=== PATIENT | male | born 1970 | race Caucasian/White ===

== ENCOUNTER 2017-09-23 14:02 | Day surgery (SDC) | payer OTHER ==
[2017-09-20 19:15] VITALS: BMI 33.9
[2017-09-23 14:36] VITALS: TEMP 98.5
[2017-09-23] MEDS ORDERED: PROPOFOL 20 ML ONE (16:54)
[2017-09-23] MEDS ORDERED: fentaNYL CITRATE 250 MCG/5 ML VIAL ONE (16:54)
[2017-09-23] MEDS ORDERED: MIDAZOLAM HCL 2 MG/2 ML SINGLE DOSE VIAL ONE (16:54)
--- NOTE | 2017-09-23 17:24 | OP ---
Operative Note - Note: Operative Date: 09/23/17 Pre-Operative Diagnosis: Right kidney stone Operation: Right ESWL Findings: 7 mm mid pole Right renal stone Post-Operative Diagnosis: Same as Pre-op Anesthesia: Fractional
[2017-09-23 19:21] VITALS: BP 119/88; PULSE 76
--- NOTE | 2017-09-23 23:45 | OP ---
DATE OF OPERATION: 09/23/2017 PREOPERATIVE DIAGNOSIS: Right renal stone. POSTOPERATIVE DIAGNOSIS: Right renal stone. PROCEDURE: Right extracorporeal shock wave lithotripsy. ATTENDING: Tracey Kaplan M.D. ANESTHESIA: Fractional. OPERATION: Patient was brought in the operating room, placed in a supine position on the operating room table. Ultrasonography and fluoroscopy were performed. A 7-mm right mid pole stone was identified. At this point, anesthesia and preoperative antibiotics were administered. With this accomplished, the patient underwent a right extracorporeal shock wave lithotripsy. 3000 impulses at 17 joules of power were administered to the stone with excellent fragmentation under real time fluoroscopy and ultrasonography. The patient tolerated DISPOSITION: Disposition of the patient to the recovery room. TRACEY BRIDGES M.D. [id number]
== END 2017-09-23 18:20 | disposition home or self-care (01) ==
LOC: JASU-SURG 14:02
PROVIDERS: ATTEND Urology
PROC: 0TF3XZZ Fragmentation in Right Kidney Pelvis, External Approach (ICD-10-PCS; principal; 2017-09-23 15:30)
DX: N20.0 Calculus of kidney (principal)

== ENCOUNTER 2018-04-07 10:25 | Day surgery (SDC) | payer OTHER ==
[2018-04-04 08:45] VITALS: BMI 33.9
[~2018-04-07 10:25] MED LIST: oxyCODONE HCL 5 MG TABLET PO PRN
[2018-04-07] MEDS ORDERED: MIDAZOLAM HCL 2 MG/2 ML SINGLE DOSE VIAL ONE (12:13)
--- NOTE | 2018-04-07 12:43 | OP ---
Operative Note - Note: Operative Date: 04/07/18 Operation: Right renal stone Findings: 7 mm mid pole Right renal stone Post-Operative Diagnosis: Same as Pre-op Anesthesia: Fractional Estimated Blood Loss (mls): 0 Operative Report Dictated: Yes
[2018-04-07 15:06] VITALS: TEMP 97.4
[2018-04-07 15:10] VITALS: BP 143/77; PULSE 82
--- NOTE | 2018-04-08 10:06 | OP ---
DATE OF OPERATION: 04/07/2018 PREOPERATIVE DIAGNOSIS: Right renal stone. POSTOPERATIVE DIAGNOSIS: Right renal stone. PROCEDURE: Right extracorporeal shock wave lithotripsy. ATTENDING: Tracey Bridges MD ANESTHESIA: Fractional. DESCRIPTION OF PROCEDURE: The operation was as follows. The patient was brought in the operating room and placed in supine position on the operating room table. Ultrasonography and fluoroscopy was performed. A right-sided, 7-mm midpole stone was identified. Anesthesia was administered to the patient at this point as well as antibiotics. The patient then underwent shock-wave lithotripsy. Excellent fragmentation was noted under real-time ultrasonography and fluoroscopy. There were no complications. DISPOSITION: The patient went to recovery room. TRACEY BRIDGES M.D. [id number]
== END 2018-04-07 14:45 | disposition home or self-care (01) ==
LOC: JASU-SURG 10:25
PROVIDERS: ATTEND Urology
PROC: 0TF3XZZ Fragmentation in Right Kidney Pelvis, External Approach (ICD-10-PCS; principal; 2018-04-07 12:30)
DX: N20.0 Calculus of kidney (principal)

== ENCOUNTER 2018-12-19 08:27 | Inpatient (IN) | payer OTHER ==
[2018-12-18 12:57] VITALS: BMI 35.5
[2018-12-19] MEDS ORDERED: DEXAMETHASONE SOD PHOSPHATE 4 MG/1 ML VIAL ONE ×3 (09:03→10:16)
[2018-12-19] MEDS ORDERED: MIDAZOLAM HCL 2 MG/2 ML SINGLE DOSE VIAL ONE ×3 (09:03→10:13)
[2018-12-19] MEDS ORDERED: ERTAPENEM SODIUM 1 GM in SODIUM CHLORIDE 50 ML IVPB ONE (09:03)
[2018-12-19] MEDS ORDERED: ROCURONIUM BROMIDE 50 MG/5 ML SYRINGE ONE ×2 (09:03→11:20)
[2018-12-19] MEDS ORDERED: fentaNYL CITRATE 250 MCG/5 ML VIAL ONE (09:03)
[2018-12-19] MEDS ORDERED: ALVIMOPAN 12 MG CAP PO ONE ×3 (09:05→09:17)
[2018-12-19] MEDS ORDERED: ERTAPENEM SODIUM 1 GM VIAL ONE (09:14)
[2018-12-19] MEDS ORDERED: BUPIVACAINE HCL/PF 0.5% (5 MG/ML) 30 ML VIAL IJ ONE (10:14)
[2018-12-19] MEDS ORDERED: DEXAMETHASONE SOD PHOSPHATE/PF 10 MG/ML SDV ONE (10:16)
--- NOTE | 2018-12-19 10:23 | HP ---
Admitting History and Physical - Primary Care Physician PCP: Vivian Skelton - Admission Chief Complaint: appendiceal mucocoele History of Present Illness: 48 y.o. male presents with large appendiceal mucocele incidentally identified on CT scan for nephrolithiasis work-up. Patient denies abdominal pain, n & v, constipation, or weight loss. Colonoscopy was reported as unremarkable. History Source: Patient Limitations to Obtaining History: No Limitations - Past Surgical History Additional Past Surgical History: lithotrypsy - Smoking History Smoking history: Never smoked - Alcohol/Substance Use Hx Alcohol Use: Yes (RARELY) Home Medications - Allergies Allergies/Adverse Reactions: Allergies Allergy/AdvReac Type Severity Reaction Status Date / Time No Known Drug Allergies Allergy Verified 12/18/18 12:57 - Home Medications Home Medications: Ambulatory Orders Dublin-3/Dha/Epa/Fish Oil [[place] 3 500 Softgel] 1 each PO DAILY 12/19/18 Review of Systems - Review of Systems Constitutional: reports: No Symptoms Eyes: reports: No Symptoms HENT: reports: No Symptoms Neck: reports: No Symptoms Cardiovascular: reports: No Symptoms Respiratory: reports: No Symptoms Gastrointestinal: reports: No Symptoms Breasts: reports: No Symptoms Reported Physical Examination Vital Signs: Vital Signs Temperature 97.4 F L 12/19/18 09:21 Pulse Rate 73 12/19/18 09:21 Respiratory Rate 20 12/19/18 09:21 Blood Pressure 128/87 12/19/18 09:21 O2 Sat by Pulse Oximetry (%) 99 12/19/18 09:20 Constitutional: Yes: Well Nourished Eyes: Yes: Conjunctiva Clear HENT: Yes: Normocephalic Neck: Yes: Supple Cardiovascular: Yes: Regular Rate and Rhythm Respiratory: Yes: CTA Bilaterally Gastrointestinal: Yes: Soft, Palpable Mass (none), Tenderness, Rebound (none) Imaging - Results Cat Scan: Report Reviewed, Image Reviewed Problem List - Problems (1) Mucocele of appendix Assessment/Plan: r/o appendiceal cystadenoma vs. cystadenocarcinoma For open right hemicolectomy Code(s): K38.8 - OTHER SPECIFIED DISEASES OF APPENDIX
[2018-12-19] MEDS ORDERED: CEFOXITIN SODIUM 2 GM IVPB ONE (10:50)
[2018-12-19] MEDS ORDERED: cefOXitin SODIUM 2 GM VIAL (RESTRICTED TO ID) IVPB ONE (10:55)
[2018-12-19] MEDS ORDERED: HYDROmorphone HCl 2 MG/ML VIAL ONE (11:57)
[2018-12-19] MEDS ORDERED: ONDANSETRON 4 MG/2 ML VIAL IVPUSH PRN (13:36)
[2018-12-19] MEDS ORDERED: LACTATED RINGERS SOLUTION 1,000 ML IV SCH (13:45)
--- NOTE | 2018-12-19 13:53 | OP ---
<Sukh Corrales - Last Filed: 12/19/18 13:51> Operative Note - Note: Operative Date: 12/19/18 Pre-Operative Diagnosis: appendix mucocele Operation: Open ileocolic resection with hepatic flexure takedown Post-Operative Diagnosis: Same as Pre-op Surgeon: James Elizabeth Stitchdown Toe Former: Sukh Corrales Anesthesiologist/MOTORIZED SQUAD SERGEANT: Donna Gardner Anesthesia: General Specimens Removed: ileocolic resection Estimated Blood Loss (mls): 30 Drains, Volume Out (mls): 400 Fluid Volume Replaced (mls): 1,300 Operative Report Dictated: Yes <James Elizabeth - Last Filed: 12/19/18 14:04> Operative Note - Note: Operation: Right hemicolectomy Findings: large (13 cm) appendiceal mucocele with loss of delineation between appendiceal base and cecum Intact non-leaking mucocele
--- NOTE | 2018-12-19 13:54 | SURG ---
Surgery Senior C Developer Note Senior C Developer: Sukh Corrales PA-C Date of Service: 12/19/18 Diagnosis: Appendix mucocele Procedure: open ileocolic resection with hepatic flexure takedown I was present for the entirety of the operative procedure. For further detail, please refer to operative report. Visit type - Case Type Case Type: Scheduled - New patient This patient is new to me today: Yes Date on this admission: 12/19/18
[2018-12-19] MEDS ORDERED: ACETAMINOPHEN 1000 MG/100 ML VIAL (NON FORMULARY) IVPB PRN (14:03)
[2018-12-19] MEDS ORDERED: HYDROmorphone *PCA* 10MG/50ML DISP.SYRIN ONE (14:06)
[2018-12-19] MEDS ORDERED: ACETAMINOPHEN INJECTION 100 ML IVPB ONE (14:06)
[2018-12-19] MEDS: HYDROmorphone *PCA* 10MG/50ML DISP.SYRIN PCA SCH ×2 (14:20→19:55)
--- NOTE | 2018-12-19 16:21 | CONSULT ---
Consult Consult Specialty:: internal medicine - History of Present Illness Chief Complaint: s/p surgery History of Present Illness: 48 yr old male h/o kidey stone s/p ESWL 6 months ago and now came in for mucocele in appedix - History Source History Provided By: Medical Record - Alcohol/Substance Use Hx Alcohol Use: Yes (RARELY) - Smoking History Smoking history: Never smoked Home Medications - Allergies Allergies/Adverse Reactions: Allergies Allergy/AdvReac Type Severity Reaction Status Date / Time No Known Drug Allergies Allergy Verified 12/18/18 12:57 - Home Medications Home Medications: Ambulatory Orders Parnell-3/Dha/Epa/Fish Oil [[place] 3 500 Softgel] 1 each PO DAILY 12/19/18 Physical Exam Vital Signs: Vital Signs Temperature 97.4 F L 12/19/18 09:21 Pulse Rate 98 H 12/19/18 15:25 Respiratory Rate 16 12/19/18 15:25 Blood Pressure 138/83 12/19/18 15:25 O2 Sat by Pulse Oximetry (%) 97 12/19/18 15:25 Problem List - Problems (1) Mucocele of appendix Assessment/Plan: Open ileocolic resection with hepatic flexure takedown dilaudid petrographer pump ivf clear liquid in AM dvt pppx labs in AM Code(s): K38.8 - OTHER SPECIFIED DISEASES OF APPENDIX
[2018-12-19] MEDS: LACTATED RINGERS SOLUTION 1,000 ML/1,000 ML INFUS.BAG IV SCH (19:56)
--- NOTE | 2018-12-19 19:56 | OP ---
DATE OF OPERATION: 12/19/2018 PROCEDURE: Open right hemicolectomy. PREOPERATIVE DIAGNOSIS: Appendiceal mucocele. POSTOPERATIVE DIAGNOSIS: Appendiceal mucocele. SURGEON: James Elizabeth MD PORTFOLIO ASSISTANT: Sukh Corrales RPA ANESTHESIA: General endotracheal. FINDINGS AND PROCEDURE: This is a 48-year-old male who presents with an incidental CT scan finding of a large (13-cm) appendiceal mucocele while being worked up for nephrolithiasis. Patient denies having abdominal pain, nausea, vomiting, constipation, or weight loss. On physical exam, patient has a soft abdomen with no palpable mass. The patient was advised elective, semi-urgent colectomy after colonoscopy. The colonoscopy revealed no abnormality of the colon. Consent was obtained after discussing the risks, benefits, and alternatives of the procedure. Patient was brought to the operating room and placed in supine position. General endotracheal anesthesia was administered. The abdomen was prepped and draped in the usual sterile fashion. A Sanford catheter was also inserted. Using scalpel blade No. 10, a 15-cm midline incision was made with dissection carried down to the subcutaneous tissue. Further dissection using Bovie cautery was done until the fascia was encountered. The fascia was incised using Bovie cautery to enter the peritoneal cavity. The large appendiceal mucocele was then encountered, and careful dissection with right-angle forceps and Bovie cautery was done to take down the adhesions to the visceral peritoneum and the right pericolic gutter. After the appendiceal mucocele was freed of its attachment, the ascending colon was then dissected by incising the white line of Toldt toward the hepatic flexure. The proximal transverse colon was identified and the omental attachments were taken down using the LigaSure [place] vessel-sealing device. Further dissection of the mesocolon toward the jejunum was done using blunt dissection and sharp dissection with sponge sticks and Bovie cautery. The duodenum was visualized. The completion of the hepatic flexure takedown was done by sharply incising the attachments to the retroperitoneum. The transverse colon was then transected just to the right of the midline using a EFRAIN 60 stapling device. The small bowel was also transected about 7 cm proximal to the ileocecal valve with an Endo EFRAIN 60/3.5-mm stapling device. The mesocolon was then completely resected using the [place] LigaSure vessel sealing device. Specimen was then carefully extracted from the abdominal cavity and sent to the lab for pathologic examination. No leakage of the mucocele contents was noted. A [id number] anastomosis was then constructed by making an enterotomy through the tip of the staple line of the colon and the small bowel, and an Endo EFRAIN 60 stapling device was fired to create the common channel. The common enterotomy was then closed with a TA 60 stapling device. The anastomosis was then covered with omentum to protect the anastomosis. The omentum was tacked to the anastomotic area with 2 Vicryl 3-0 sutures. The peritoneal cavity was irrigated with sterile water until the return was clear. The wound was closed with continuous PDS loop No. 1 suture for the fascia and larry for the skin. The wound was then covered with sterile dressing. Patient was successfully extubated and transferred to the post-anesthesia care unit in satisfactory condition. Estimated blood loss was about 50 mL. Wound class clean, contaminated. The patient received 2 g of propoxyphene prior to the start of the procedure. Sarahi [id number] MTDD
[2018-12-20] MEDS ORDERED: PT OWN MED DRAWER 7, Y5N ONE (06:22)
[2018-12-20 07:56] LABS: BASO % 0.2 % (0-2.0); HEMATOCRIT 39.3 % (35.4-49); HEMOGLOBIN 12.9 GM/dL (11.7-16.9); LYMPH % 18.6 % (8-40); MCH 25.6 pg (25.7-33.7); MCHC 32.7 g/dl (32.0-35.9); MEAN CELL VOLUME 78.3 fl (80-96); MEAN PLT VOLUME 7.6 fl (7.5-11.1); MONO % 8.9 % (3.8-10.2); NEUT % 72.3 % (42.8-82.8); PLATELET COUNT 177 K/MM3 (134-434); RBC 5.02 M/mm3 (4.00-5.60); RDW 14.8 % (11.9-15.9); WHITE BLOOD COUNT 10.3 K/mm3 (4.0-10.0)
[2018-12-20 08:05] LABS: BLOOD UREA NITROGEN 17.3 mg/dL (7-18); CALCIUM 8.5 mg/dL (8.5-10.1); CREATININE 0.8 mg/dL (0.55-1.3)
--- NOTE | 2018-12-20 08:24 | PN ---
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
[2018-12-20] MEDS: ENOXAPARIN NA (PORCINE) 40 MG/0.4 ML DISP.SYRIN SQ SCH (09:18)
[2018-12-20] MEDS: HYDROmorphone *PCA* 10MG/50ML DISP.SYRIN PCA SCH (14:14)
--- NOTE | 2018-12-20 16:12 | PN ---
Progress Note, Physician Chief Complaint: Appendiceal Mucocele History of Present Illness: Previous notes and events reviewed awake and alert NAD complain of pain to surgical site denies BM or passing flatus - Current Medication List Current Medications: Active Medications Acetaminophen (Ofirmev Injection -) 1,000 mg IVPB Q6H PRN PRN Reason: PAIN Last Admin: 12/19/18 14:10 Dose: 1,000 mg Enoxaparin Sodium (Lovenox -) 40 mg SQ DAILY [facility] Last Admin: 12/20/18 09:18 Dose: 40 mg Fentanyl (Sublimaze Injection -) 50 mcg IVPUSH [id number] PRN PRN Reason: PAIN-PACU ORDER X 4 DOSES ONLY Hydromorphone HCl (Hydromorphone 10 Mg/50 Ml-Ns) 10 mg COLORS CUSTODIAN COLORS CUSTODIAN [facility]; Protocol Stop: 12/26/18 13:40 Last Admin: 12/20/18 14:14 Dose: Not Given Lactated Ringer's (Lactated Ringers Solution) 1,000 ml in 1,000 mls @ 75 mls/ hr IV ASDIR [facility] Last Admin: 12/19/18 19:56 Dose: Not Given Ondansetron HCl (Zofran Injection) 4 mg IVPUSH Q6H PRN PRN Reason: NAUSEA AND/OR VOMITING - Objective Vital Signs: Vital Signs Temperature 99.1 F 12/20/18 15:35 Pulse Rate 99 H 12/20/18 15:35 Respiratory Rate 18 12/20/18 15:35 Blood Pressure 132/85 12/20/18 15:35 O2 Sat by Pulse Oximetry (%) 96 12/20/18 09:00 Constitutional: Yes: No Distress, Calm Eyes: Yes: Conjunctiva Clear HENT: Yes: Atraumatic Cardiovascular: Yes: Regular Rate and Rhythm Respiratory: Yes: Regular, CTA Bilaterally Gastrointestinal: Yes: Soft, Distention, Hypoactive Bowel Sounds Musculoskeletal: Yes: Muscle Weakness Extremities: Yes: WNL Edema: No Neurological: Yes: Alert, Oriented Psychiatric: Yes: Alert, Oriented Labs: CBC, BMP 12/20/18 05:59 12/20/18 05:59 Problem List - Problems (1) Mucocele of appendix Assessment/Plan: -Surgery on board -COLORS CUSTODIAN pain control -Incentive Spirometer -IV hydration -clear liquid diet -POD #1 open ileocolic resection with hepatic flexure takedown Code(s): K38.8 - OTHER SPECIFIED DISEASES OF APPENDIX Assessment/Plan see problem list dvt ppx
--- NOTE | 2018-12-20 19:57 | PN ---
Progress Note, Physician Chief Complaint: S/P RIGHT HEMICOLECTOMY POD # 1 History of Present Illness: Post-op pain tolerable Able to be OOB Voiding freely Tolerating clear liquids - Current Medication List Current Medications: Active Medications Acetaminophen (Ofirmev Injection -) 1,000 mg IVPB Q6H PRN PRN Reason: PAIN Last Admin: 12/19/18 14:10 Dose: 1,000 mg Enoxaparin Sodium (Lovenox -) 40 mg SQ DAILY [facility] Last Admin: 12/20/18 09:18 Dose: 40 mg Fentanyl (Sublimaze Injection -) 50 mcg IVPUSH [id number] PRN PRN Reason: PAIN-PACU ORDER X 4 DOSES ONLY Hydromorphone HCl (Hydromorphone 10 Mg/50 Ml-Ns) 10 mg VISUAL AID EXPERT VISUAL AID EXPERT [facility]; Protocol Stop: 12/26/18 13:40 Last Admin: 12/20/18 14:14 Dose: Not Given Lactated Ringer's (Lactated Ringers Solution) 1,000 ml in 1,000 mls @ 75 mls/ hr IV ASDIR [facility] Last Admin: 12/19/18 19:56 Dose: Not Given Ondansetron HCl (Zofran Injection) 4 mg IVPUSH Q6H PRN PRN Reason: NAUSEA AND/OR VOMITING - Objective Vital Signs: Vital Signs Temperature 99.1 F 12/20/18 17:40 Pulse Rate 106 H 12/20/18 17:40 Respiratory Rate 20 12/20/18 17:40 Blood Pressure 137/82 12/20/18 17:40 O2 Sat by Pulse Oximetry (%) 96 12/20/18 09:00 Constitutional: Yes: Anxious Eyes: Yes: Conjunctiva Clear Neck: Yes: Supple Cardiovascular: Yes: Regular Rate and Rhythm Respiratory: Yes: CTA Bilaterally Gastrointestinal: Yes: Soft, Abdomen, Obese, Tenderness (over midline incision) Wound/Incision: Yes: Dressing Dry and Intact Labs: CBC, BMP 12/20/18 05:59 12/20/18 05:59 Problem List - Problems (1) Mucocele of appendix Assessment/Plan: Doing well Continue IVF Stay on clear liquids until patient passes flatus D/c VISUAL AID EXPERT in am OOB, IS, GI, & DVT prophylaxis Code(s): K38.8 - OTHER SPECIFIED DISEASES OF APPENDIX
[2018-12-21] MEDS: LACTATED RINGERS SOLUTION 1,000 ML/1,000 ML INFUS.BAG IV SCH ×4 (05:23→17:35)
[2018-12-21] MEDS: ENOXAPARIN NA (PORCINE) 40 MG/0.4 ML DISP.SYRIN SQ SCH (09:04)
[2018-12-21] MEDS: HYDROmorphone *PCA* 10MG/50ML DISP.SYRIN PCA SCH ×2 (14:12→17:29)
--- NOTE | 2018-12-21 15:23 | PN ---
Progress Note, Physician - Current Medication List Current Medications: Active Medications Acetaminophen (Ofirmev Injection -) 1,000 mg IVPB Q6H PRN PRN Reason: PAIN Last Admin: 12/19/18 14:10 Dose: 1,000 mg Enoxaparin Sodium (Lovenox -) 40 mg SQ DAILY [facility] Last Admin: 12/21/18 09:04 Dose: 40 mg Fentanyl (Sublimaze Injection -) 50 mcg IVPUSH [id number] PRN PRN Reason: PAIN-PACU ORDER X 4 DOSES ONLY Hydromorphone HCl (Hydromorphone 10 Mg/50 Ml-Ns) 10 mg LIEUTENANT/DEPUTY LIEUTENANT/DEPUTY [facility]; Protocol Stop: 12/26/18 13:40 Last Admin: 12/21/18 14:12 Dose: Not Given Lactated Ringer's (Lactated Ringers Solution) 1,000 ml in 1,000 mls @ 75 mls/ hr IV ASDIR [facility] Last Admin: 12/21/18 05:24 Dose: 75 mls/hr Ondansetron HCl (Zofran Injection) 4 mg IVPUSH Q6H PRN PRN Reason: NAUSEA AND/OR VOMITING - Objective Vital Signs: Vital Signs Temperature 98.6 F 12/21/18 10:31 Pulse Rate 96 H 12/21/18 10:31 Respiratory Rate 20 12/21/18 10:31 Blood Pressure 152/90 12/21/18 10:31 O2 Sat by Pulse Oximetry (%) 97 12/21/18 09:00 Labs: CBC, BMP 12/20/18 05:59 12/20/18 05:59 Problem List - Problems (1) Mucocele of appendix Code(s): K38.8 - OTHER SPECIFIED DISEASES OF APPENDIX
--- NOTE | 2018-12-21 16:14 | PN ---
Progress Note (short form) - Note Progress Note: ID CONSULT DICTATED POD# 2 OPEN R HEMICOLECTOMY LOW GRADE FEVER OBSERVE OFF ANTIBIOTICS OOB/ INCENTIVE SPIROMETRY
--- NOTE | 2018-12-21 18:13 | PN ---
Progress Note, Physician Chief Complaint: S/P RIGHT HEMICOLECTOMY POD # 2 History of Present Illness: passed flatus and had soft bm tolerating clear liquids - Current Medication List Current Medications: Active Medications Acetaminophen (Ofirmev Injection -) 1,000 mg IVPB Q6H PRN PRN Reason: PAIN Last Admin: 12/19/18 14:10 Dose: 1,000 mg Enoxaparin Sodium (Lovenox -) 40 mg SQ DAILY [facility] Last Admin: 12/21/18 09:04 Dose: 40 mg Fentanyl (Sublimaze Injection -) 50 mcg IVPUSH [id number] PRN PRN Reason: PAIN-PACU ORDER X 4 DOSES ONLY Hydromorphone HCl (Hydromorphone 10 Mg/50 Ml-Ns) 10 mg ASSOCIATE BUYER ASSOCIATE BUYER [facility]; Protocol Stop: 12/26/18 13:40 Last Admin: 12/21/18 17:29 Dose: 10 mg Lactated Ringer's (Lactated Ringers Solution) 1,000 ml in 1,000 mls @ 75 mls/ hr IV ASDIR [facility] Last Admin: 12/21/18 17:35 Dose: 75 mls/hr Ondansetron HCl (Zofran Injection) 4 mg IVPUSH Q6H PRN PRN Reason: NAUSEA AND/OR VOMITING - Objective Vital Signs: Vital Signs Temperature 98.0 F 12/21/18 17:14 Pulse Rate 105 H 12/21/18 17:14 Respiratory Rate 18 12/21/18 17:14 Blood Pressure 135/92 12/21/18 17:14 O2 Sat by Pulse Oximetry (%) 96 12/21/18 14:00 Constitutional: Yes: No Distress Gastrointestinal: Yes: Soft, Abdomen, Obese Wound/Incision: Yes: Clean/Dry, Well Approximated, Margo Intact, Open to air, Dressing Removed Labs: CBC, BMP 12/20/18 05:59 12/20/18 05:59 Problem List - Problems (1) Mucocele of appendix Assessment/Plan: Doing well has early return of bowel function advance to soft diet in am OOB, IS, DVT, & GI prophylaxis Code(s): K38.8 - OTHER SPECIFIED DISEASES OF APPENDIX
--- NOTE | 2018-12-21 18:21 | CONS ---
DATE OF CONSULTATION: DATE OF DICTATION: 12/21/2018 The patient is a 48-year-old male who is evaluated for postoperative fever. The patient was found to have an appendiceal mucocele during a routine evaluation for nephrolithiasis. He underwent an elective open right hemicolectomy on December 19, 2018. He is presently postoperative day number 2. His postoperative course has been complicated by fever, 100.2. At the present time, he is awake and alert. He has no focal complaint other than some incisional pain. He denies any shaking chills. No complaints of chest pain, shortness of breath, cough, or sputum production. No vomiting or diarrhea. No dysuria. No complaints of calf pain. PAST MEDICAL HISTORY: As above. No known allergies. LABORATORY DATA: White count 10.3, creatinine 0.8. PHYSICAL EXAMINATION: General: He is awake and alert. He is not acutely toxic appearing. Vital Signs: Temperature 99. T-max 100.2. Blood pressure 143/97. Pulse 94, regular. Respirations 18 per minute. Eyes: Sclerae anicteric. Heart Sounds: S1, S2. Lungs: Clear. Abdomen: Soft. Positive incisional tenderness. Surgical dressing in place. Extremities: Negative for edema. Negative Homans sign. IMPRESSION: 1. Postoperative day number 2, right hemicolectomy. 2. Low-grade postoperative fever. Would observe off antibiotic therapy. Encourage out of bed and incentive spirometry. Should patient develop recurrent fever, will obtain cultures off antibiotics. For now, observe. Thank you for the kind referral. BENIGNO DICKEY M.D. [id number]
[2018-12-21] MEDS ORDERED: ACETAMINOPHEN 325 MG TABLET (FP) PO PRN (18:25)
[2018-12-21] MEDS ORDERED: oxyCODONE HCL 5 MG TABLET PO PRN (18:25)
[2018-12-22 07:55] LABS: BASO % 0.3 % (0-2.0); EOS % 0.6 % (0-4.5); HEMATOCRIT 39.5 % (35.4-49); HEMOGLOBIN 13.1 GM/dL (11.7-16.9); LYMPH % 32.9 % (8-40); MCH 25.6 pg (25.7-33.7); MCHC 33.1 g/dl (32.0-35.9); MEAN CELL VOLUME 77.4 fl (80-96); MEAN PLT VOLUME 7.4 fl (7.5-11.1); MONO % 8.5 % (3.8-10.2); NEUT % 57.7 % (42.8-82.8); PLATELET COUNT 185 K/MM3 (134-434); RDW 14.4 % (11.9-15.9); WHITE BLOOD COUNT 7.2 K/mm3 (4.0-10.0)
[2018-12-22 08:11] LABS: BLOOD UREA NITROGEN 9.5 mg/dL (7-18); CALCIUM 8.7 mg/dL (8.5-10.1); CREATININE 0.8 mg/dL (0.55-1.3); POTASSIUM 3.9 mmol/L (3.5-5.1)
--- NOTE | 2018-12-22 08:20 | PN ---
Progress Note, Physician Chief Complaint: POST OP NO FEVER TODAY CLEAR DIET TOLERATED - Current Medication List Current Medications: Active Medications Acetaminophen (Tylenol -) 325 mg PO Q6H PRN PRN Reason: PAIN LEVEL 6-10 Enoxaparin Sodium (Lovenox -) 40 mg SQ DAILY [facility] Last Admin: 12/21/18 09:04 Dose: 40 mg Fentanyl (Sublimaze Injection -) 50 mcg IVPUSH [id number] PRN PRN Reason: PAIN-PACU ORDER X 4 DOSES ONLY Lactated Ringer's (Lactated Ringers Solution) 1,000 ml in 1,000 mls @ 75 mls/ hr IV ASDIR [facility] Last Admin: 12/21/18 17:35 Dose: 75 mls/hr Ondansetron HCl (Zofran Injection) 4 mg IVPUSH Q6H PRN PRN Reason: NAUSEA AND/OR VOMITING Oxycodone HCl (Roxicodone -) 5 mg PO Q6H PRN PRN Reason: PAIN LEVEL 6-10 - Objective Vital Signs: Vital Signs Temperature 98.5 F 12/22/18 06:13 Pulse Rate 84 12/22/18 06:13 Respiratory Rate 20 12/22/18 06:13 Blood Pressure 133/93 12/22/18 06:13 O2 Sat by Pulse Oximetry (%) 97 12/21/18 18:10 Constitutional: Yes: Mild Distress Cardiovascular: Yes: Regular Rate and Rhythm Respiratory: Yes: WNL Gastrointestinal: Yes: Other (BLEDING OOZING FROM STAPLE SITE) Musculoskeletal: Yes: WNL Extremities: Yes: WNL Edema: No Integumentary: Yes: WNL Wound/Incision: Yes: Clean/Dry Neurological: Yes: WNL ...Motor Strength: WNL Psychiatric: Yes: WNL Labs: CBC, BMP 12/22/18 06:15 Problem List - Problems (1) Mucocele of appendix Code(s): K38.8 - OTHER SPECIFIED DISEASES OF APPENDIX Assessment/Plan MONITOR LABS CULTURES FOR FEVER PENDING ID AND SX F/U ADVANCE DIET PER SURGERY OOB TO CHAIR DVT PROPHYLAXIS PAIN CONTROL
--- NOTE | 2018-12-22 09:11 | PN ---
Progress Note (short form) - Note Progress Note: 48yo M s/p Rt hemicolectomy POD # 3, pt seen and examined at bedside. Pt states that he is feeling well, tolerating PO and ambulating well. Pt denies fever, chills, n/v. Pt states that he had BM yesterday and is passing flatus. Pt is anxious to go home. Last Vital Signs Temp Pulse Resp BP Pulse Ox 98.5 F 84 20 133/93 97 12/22/18 06:13 12/22/18 06:13 12/22/18 06:13 12/22/18 06:13 12/21/18 18:10 PE: Gen: A&O X3 Resp: breathing comfortably Abd: soft, mild tenderness, non distended, incision clean, larry in place. Ext: no edema Problem List - Problems (1) Mucocele of appendix Assessment/Plan: Plan -pt appears to be doing well, will have diet adv to soft this morning, if pt tolerates diet and continues to do well, is cleared for discharge today from surgery standpoint. -pt should follow up with Dr. Elizabeth in 1 week as outpatient for follow up. Case discussed with Dr. Elizabeth who agrees with plan. Code(s): K38.8 - OTHER SPECIFIED DISEASES OF APPENDIX
[2018-12-22] MEDS: ENOXAPARIN NA (PORCINE) 40 MG/0.4 ML DISP.SYRIN SQ SCH (11:31)
[2018-12-23 06:37] LABS: HEMATOCRIT 39.1 % (35.4-49); HEMOGLOBIN 12.8 GM/dL (11.7-16.9); MCH 25.6 pg (25.7-33.7); MCHC 32.7 g/dl (32.0-35.9); MEAN CELL VOLUME 78.2 fl (80-96); MEAN PLT VOLUME 7.2 fl (7.5-11.1); PLATELET COUNT 199 K/MM3 (134-434); RDW 14.4 % (11.9-15.9); WHITE BLOOD COUNT 6.1 K/mm3 (4.0-10.0)
[2018-12-23 06:53] VITALS: BP 123/84; PULSE 76; TEMP 98.1
[2018-12-23 07:11] LABS: BLOOD UREA NITROGEN 12.6 mg/dL (7-18); CALCIUM 8.7 mg/dL (8.5-10.1); CREATININE 0.9 mg/dL (0.55-1.3); MAGNESIUM 2.2 mg/dL (1.8-2.4); POTASSIUM 3.8 mmol/L (3.5-5.1)
--- NOTE | 2018-12-23 07:44 | PN ---
Progress Note (short form) - Note Progress Note: 8yo M s/p Rt hemicolectomy POD # 4, pt seen and examined at bedside. Pt states that he is feeling well, tolerating PO and ambulating well. Pt is moving his bowels and his pain is controlled. He denies any CP, SOB, N/V, fever or chills. Vital Signs Temp 98.1 F 12/23/18 06:52 Pulse 76 12/23/18 06:52 Resp 20 12/23/18 06:52 BP 123/84 12/23/18 06:52 Pulse Ox 97 12/22/18 21:00 Intake & Output 12/22/18 12/22/18 12/23/18 11:59 23:59 11:59 Intake Total 500 1550 Output Total 600 400 Balance 500 950 -400 Intake: IV 500 LACTATED RINGERS SOLUTION 500 1,000 ml In 1,000 ml @ 75 mls/hr IV ASDIR [facility] Rx #:[id number] Oral 1550 Output: Urine 600 400 Void 600 400 Other: Voiding Method Urinal Toilet # Unmeasured Voids Sanford 2 Void 2 1 Bowel Movement No Yes # Bowel Movements 1 CBC, BMP 12/23/18 05:30 12/23/18 05:30 PE: Gen: A&O X3, NAD Resp:unlabored resp on RA Abd: obese soft, mild tenderness, non distended, incision c/d/i with surrounding tissue intact and no erythema or d/c, larry in place. Ext: no edema Problem List - Problems (1) Mucocele of appendix Assessment/Plan: POD #4 patient doing well. -Advance diet as tolerated -OOB -Daily IS -F/u with Dr. Elizabeth in 1 week as outpatient. -D/c planning for home Code(s): K38.8 - OTHER SPECIFIED DISEASES OF APPENDIX
--- NOTE | 2018-12-23 08:29 | DS ---
Physical Examination Vital Signs: Vital Signs Temperature 98.1 F 12/23/18 06:52 Pulse Rate 76 12/23/18 06:52 Respiratory Rate 20 12/23/18 06:52 Blood Pressure 123/84 12/23/18 06:52 O2 Sat by Pulse Oximetry (%) 97 12/22/18 21:00 Constitutional: Yes: No Distress Eyes: Yes: WNL Neck: Yes: WNL Cardiovascular: Yes: WNL Respiratory: Yes: WNL Gastrointestinal: Yes: Other (soft larry/sutures clean) Musculoskeletal: Yes: WNL Edema: No Peripheral Pulses WNL: Yes Integumentary: Yes: WNL Wound/Incision: Yes: Clean/Dry Neurological: Yes: WNL ...Motor Strength: WNL Psychiatric: Yes: WNL Labs: CBC, BMP 12/23/18 05:30 12/23/18 05:30 Discharge Summary Problems reviewed: Yes Reason For Visit: APPENDICEAL MUCOCELE Current Active Problems Mucocele of appendix (Acute) Procedures: Principal: appendectomy/mucocele Other Procedures: xrays/labs Hospital Course: admitted for mucocele/appendectomy Health Concerns: follow up needed Plan of Treatment: appendectomy completed tolerated well Goals: advance diet as tolerated Condition: Stable - Instructions Diet, Activity, Other Instructions: Dr Elizabeth Discharge Instructions Dear DASHA VILLANUEVA, Post Operative Instructions Physical activity Resume your normal everyday activity as tolerated no heavy lifting or exercise until seen by your surgeon. You may walk unlimited amounts of and climb stairs. You may resume driving the car when you feel safe and comfortable behind the wheel. Wound care If you have a bandage, leave it on, and keep dry for 48-72 hours. After that time discard the outer bandage. If there are tapes on the skin under the outer bandage, leave them in place. They will peel off in the next 7 to 10 days. Do Not Peel them off. You may shower the day after surgery. If there are tapes present on the skin, you may shower over them. Diet There are no dietary restrictions. Eat healthy, high-fiber foods. Drink 6 to 8 glasses of liquid each day. This will assist in keeping your bowels are regular. Pain management You may take Tylenol or acetaminophen or Ibuprofen (for example, Motrin, Advil etc.) Any pain prescription medication ordered should be taken as prescribed for moderate to severe pain. Call Dr. Elizabeth for any of the following: Severe pain not relieved by medication Fever of 101 or higher Excessive bleeding or drainage on dressing Inability to urinate Call the office at [phone] for an appointment in seven days. Disposition: HOME - Home Medications Comprehensive Discharge Medication List: Ambulatory Orders [place]-3/Dha/Epa/Fish Oil [[place] 3 500 Softgel] 1 each PO DAILY 12/19/18 Acetaminophen [Tylenol .Regular Strength -] 325 mg PO Q6H PRN tablet 12/23/18 Prescription Drug Monitoring Program (I-STOP) results: I-STOP not reviewed
[2018-12-23] MEDS: ENOXAPARIN NA (PORCINE) 40 MG/0.4 ML DISP.SYRIN SQ SCH (11:26)
--- NOTE | 2018-12-25 12:18 | PATH ---
Surgical Pathology Report Patient Name: DASHA VILLANUEVA [facility]. Rec. #: [id number] /Age/Gender: 1970 (Age: 48) / M Account: [id number] Location: [facility] MED/SURG Taken: 12/19/2018 Received: 12/19/2018 Reported: 12/25/2018 Physicians: James Elizabeth M.D. 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 NEOPLASM MEASURES 15 CM IN GREATEST DIMENSION (GROSS MEASUREMENT). NEOPLASM DIFFUSELY INVOLVES APPENDIX. NEOPLASM IS CONFINED BY MUSCULARIS PROPRIA. NO LYMPHOVASCULAR INVASION IDENTIFIED. CECUM, ILEUM, AND RIGHT COLON ARE UNINVOLVED BY NEOPLASM. SURGICAL MARGINS ARE NEGATIVE (PROXIMAL, DISTAL, RADIAL/MESENTERIC). FOURTEEN BENIGN LYMPH NODES (0/14). PATHOLOGIC STAGE (pTMN): pTis pN0. SEE COMMENT. SEE CASE SUMMARY BELOW. Comment: The appendix is dilated, diffusely involved by a low grade mucinous neoplasm comprised of abundant mucin associated with mucinous epithelium; which are either flattened, undulating, or have penicillate nuclei with pseudostratification. No high grade atypia identified. The neoplasm is confined by the muscularis propria wherein some areas are attenuated, fibrotic, associated with dystrophic calcifications and chronic inflammatory infiltrate. No serosal lesions, extravasated mucin, or areas of perforation identified. Comments Surgical Pathology Cancer Case Summary AJCC pTNM Staging, 8th Edition APPENDIX Procedure _X_ Right hemicolectomy Tumor Site _X__ Diffusely involving appendix Tumor Size Greatest dimension (centimeters): 15 cm (gross measurement) Additional dimensions (centimeters): 7 x 6 cm Histologic Type _X__ Low-grade appendiceal mucinous neoplasm Histologic Grade _X_ G1: Well differentiated Tumor Extension _X__ Tumor confined by muscularis propria Margins Proximal Margin _X_ Uninvolved by low-grade appendiceal mucinous neoplasm Distal Margin _X_ Uninvolved by low-grade appendiceal mucinous neoplasm Mesenteric Margin _X_ Uninvolved by appendiceal mucinous neoplasm Lymphovascular Invasion _X__ Not identified Tumor Deposits _X__ Not identified Regional Lymph Nodes Lymph Node Examination Number of Lymph Nodes Involved: 0 Number of Lymph Nodes Examined: 14 Pathologic Stage Classification (pTNM, AJCC 8th Edition) Primary Tumor (pT) _X_ pTis(LAMN): 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 Regional Lymph Nodes (pN) _X__ pN0: No regional lymph node metastasis Electronically Signed Izabela Yarbrough M.D. Gross Description Received in formalin labeled "appendiceal mucocele, ileum, colon resection" is a segment of bowel with moderate pericolonic/tisha-intestinal fat which measures 44 cm in length and comprised of terminal ileum (7 x 3.5 cm), cecum (7 x 7 cm), appendiceal mass (15 x 7 x 6 cm), and segment of colon (30 x 5 cm). Serosal surface of the mass is smooth. No serosal lesions, extravasated mucin, or perforation identified. Upon sectioning, the mass appears confined to the appendix and contains abundant opaque to yellow mucoid/viscous material. The wall ranges in thickness from 0.1-0.3 cm. Focal areas of white-chalky material within the wall is noted. No residual normal appendix identified. The mass is 8 cm from proximal margin, 30 cm from distal margin, and 6 cm from mesenteric/radial margin. All thickened wall segments and suspicious areas are submitted initially. Pericolonic/tisha-intestinal fat was dissected for lymph nodes. Multiple lymph nodes are identified ranging in size from 0.2 to 1.7 cm. All lymph nodes are submitted. Additional sections are submitted to entirely sample mass. [employer] sections are submitted as follows: 1-proximal margin; 2-distal margin; 3-radial/mesenteric margin,4-7- mass; 8-9- mass, wall thickening; 10- mucoid contents; 11-13- mass, wall thickening; 14- ileum; 15- cecum; 16- colon; 17- one bisected lymph node; 18-19- 3 lymph nodes each; 20-21- multiple lymph nodes each; 22-40- additional sections, entirely submitted mass (30 and 32- mass with adjacent cecum). MLSZ/12/19/2018 [place]/12/19/2018
== END 2018-12-23 12:59 | disposition home or self-care (01) | DRG 221 ==
LOC: JSAMEDAYSX 08:27 → J8W 16:16
PROVIDERS: ADMIT Family Medicine; ATTEND Family Medicine
PROC: 0DTJ0ZZ Resection of Appendix, Open Approach (ICD-10-PCS; 2018-12-19)
PROC: 0DTF0ZZ Resection of Right Large Intestine, Open Approach (ICD-10-PCS; principal; 2018-12-19 10:00)
DX: K38.8 Other specified diseases of appendix (principal); E66.9 Obesity, unspecified; Z68.35 Body mass index [BMI] 35.0-35.9, adult
CPT/HCPCS: 36415; 80048; 83735; 85025; 85027; 94760; J0131

== ENCOUNTER 2021-01-08 15:55 | Emergency (ER) | payer OTHER ==
[2021-01-08 16:02] VITALS: BP 132/88; PULSE 79; TEMP 97; BMI 33.9
[2021-01-08] MEDS ORDERED: predniSONE 20 MG TABLET (UD) PO ONE (16:32)
[2021-01-08 17:03] LABS: EOS % 0.4 % (0-4.5); HEMOGLOBIN 14.2 GM/dL (11.7-16.9); LYMPH % 41.1 % (8-40); MCH 25.5 pg (25.7-33.7); MCHC 32.9 g/dl (32.0-35.9); MEAN CELL VOLUME 77.5 fl (80-96); MEAN PLT VOLUME 7.2 fl (7.5-11.1); MONO % 7.3 % (3.8-10.2); NEUT % 50.2 % (42.8-82.8); PLATELET COUNT 180 10^3/uL (134-434); RBC 5.55 M/mm3 (4.00-5.60); RDW 14.5 % (11.9-15.9); WHITE BLOOD COUNT 5.7 K/mm3 (4.0-10.0)
[2021-01-08 17:31] LABS: ALBUMIN 3.9 g/dl (3.4-5.0)
[2021-01-08 17:32] LABS: BLOOD UREA NITROGEN 16.9 mg/dL (7-18)
[2021-01-08 17:35] LABS: BILIRUBIN,TOTAL 0.4 mg/dL (0.2-1); TOT PROT 7.5 g/dl (6.4-8.2)
== END 2021-01-08 19:55 | disposition home or self-care (01) ==
LOC: JER 15:55
DX: G51.0 Bell's palsy (principal); R20.2 Paresthesia of skin
CPT/HCPCS: 36415; 70450-TC; 80053; 85025; 99284-25

== ENCOUNTER 2021-03-04 15:32 | Emergency (ER) | payer OTHER ==
[2021-03-04 16:06] VITALS: TEMP 97.7; BMI 36.3
[2021-03-04] MEDS ORDERED: CASIRIVIMAB/IMDEVIMAB 10 ML in SODIUM CHLORIDE 100 ML IVPB ONE (16:39)
[2021-03-04] MEDS ORDERED: ACETAMINOPHEN 325 MG TABLET (FP) PO ONE (18:48)
[2021-03-04] MEDS ORDERED: ACETAMINOPHEN 325 MG TABLET (FP) ONE (18:54)
[2021-03-04 19:03] VITALS: BP 132/70; PULSE 89
== END 2021-03-04 19:03 | disposition home or self-care (01) ==
LOC: JER 15:32
DX: U07.1 COVID-19 (principal)
CPT/HCPCS: 99284-25; Q0240